=== PATIENT | male | born 1995 | race Caucasian/White ===

== ENCOUNTER 2019-06-01 22:57 | Observation (INO) | payer SELFPAY ==
[~2019-06-01] VITALS: Ht 188 cm; Wt 81.8 kg
[2019-06-01 23:46] LABS: BASOPHILS 0.2 % (0-2); EOSINOPHILS 3.1 % (0-7); HEMATOCRIT 40.4 % (42.0-54.0); HEMOGLOBIN 14.2 g/dL (13.5-17.5); IMMATURE GRANULOCYTES 0.3 % (0-5); LYMPHOCYTES 20.1 % (15-50); MCH 30.5 pg (26.0-34.0); MCHC 35.1 g/dL (31.0-37.0); MCV 86.7 fL (80.0-100.0); MEAN PLATELET VOLUME 9.1 fL (7.4-10.4); MONOCYTES 6.3 % (2-11); PLATELET COUNT 223 10x3/uL (130-400); RBC 4.66 10x6/uL (4.20-6.10); RDW 12.2 % (11.5-14.5); WBC 17.1 10x3/uL (4.8-10.8)
[2019-06-01 23:58] LABS: APTT 27.6 SECONDS (22.8-39.4)
[2019-06-02 00:04] LABS: PROTIME 12.7 SECONDS (11.6-15.0)
[2019-06-02 00:07] LABS: ALBUMIN 4.3 g/dL (3.4-5.0); ALKALINE PHOSPHATASE 56 U/L (46-116); ALT (SGPT) 23 U/L (10-68); BILIRUBIN - TOTAL 0.31 mg/dL (0.2-1.3); CALC OSMOLALITY 281 mosm/kg (275-300); CALCIUM 8.9 mg/dL (8.5-10.1); CARBON DIOXIDE 28.9 mmol/L (21.0-32.0); CHLORIDE - SERUM 103 mmol/L (98-107); CREATININE - SERUM 1.3 mg/dL (0.6-1.3); GLUCOSE 107 mg/dL (74-106); POTASSIUM - SERUM 4.2 mmol/L (3.5-5.1); PROTEIN - SERUM 7.1 g/dL (6.4-8.2); SODIUM 141 mmol/L (136-145); UREA NITROGEN 14 mg/dL (7-18); eGFR NON AFRICAN AMERICAN 71 mL/min (90-120)
[2019-06-02 00:16] LABS: CKMB 1.3 U/L (0.0-3.6); CREATINE KINASE 117 UL (21-232); PRO BNP 50 pg/mL (0-125); TROPONIN-I < 0.017 ng/mL (0.000-0.060)
--- NOTE | 2019-06-02 02:44 | NUR ---
bLOOD SUGAR AT 157 AT 0138, RECHECKED AT 0230 IT WAS 48, NOTIFIED DR RUSSELL ORDERS FOR 1 AMP D 50 AND HAND BAG OF D10 AT 125. RECHECKED BLOOD SUGAR AFTER AT 168. PT AWAKE AND ORIENTED.
[2019-06-02 02:50] LABS: APPEARANCE CLEAR (CLEAR); BILIRUBIN NEGATIVE (NEGATIVE); COLOR YELLOW (YELLOW); GLUCOSE 500 mg/dL (NEGATIVE); KETONE NEGATIVE (NEGATIVE); NITRITE NEGATIVE (NEGATIVE); PROTEIN NEGATIVE (NEGATIVE); SPECIFIC GRAVITY 1.015 (1.005-1.020); UROBILINOGEN NORMAL (NORMAL)
--- NOTE | 2019-06-02 03:51 | NUR ---
FSBS 131. PT STABLE, CALL LIGHT WITHIN REACH, DENIES NEEDS, WILL CONTINUE TO MONITOR.
[2019-06-02 03:52] VITALS: BP 93/42
[2019-06-02 04:57] VITALS: BP 90/44
[2019-06-02 05:03] LABS: AMYLASE - SERUM 57 U/L (25-115); LIPASE 82 U/L (73-393)
[2019-06-02 05:39] VITALS: BP 33/52
--- NOTE | 2019-06-02 05:40 | NUR ---
FSBS 107 AT THIS TIME EDP INFORMED.
--- NOTE | 2019-06-02 06:04 | NUR ---
PT REFUSING BLOOD DRAW AT THIS TIME. INFORMED PT THAT WE NEEDED BLOOD SAMPLES TO BETTER TX AND PT REPLIED," I CAN'T HAVE MY BLOOD DRAWN RIGHT NOW, I WILL START FREAKING OUT AND PUKING.". EDP INFORMED.
--- NOTE | 2019-06-02 06:06 | NUR ---
INFUSION OF ANTIBIOTICS HELD AT THIS TIME FOR FIRST ROUND OF BLOOD CULTURES.
[2019-06-02 06:28] LABS: UDS - AMPHET NEGATIVE QUAL (NEGATIVE); UDS - BARB NEGATIVE QUAL (NEGATIVE); UDS - BENZO NEGATIVE QUAL (NEGATIVE); UDS - COCAINE NEGATIVE QUAL (NEGATIVE); UDS - OPIATE POSITIVE QUAL (NEGATIVE); UDS - PCP NEGATIVE QUAL (NEGATIVE); UDS - THC POSITIVE QUAL (NEGATIVE)
--- NOTE | 2019-06-02 07:30 | NUR ---
RECIEVED FROM ER. ALERT AND ORIENTED. IV TO LEFT AC. DENIES ANY NEEDS. WILL MONITOR
[2019-06-02 08:43] VITALS: BP 94/48
[2019-06-02 12:13] VITALS: BP 111/57
[2019-06-02 13:43] VITALS: Ht 188 cm; Wt 81.8 kg
--- NOTE | 2019-06-02 14:19 | NUR ---
ASSESSMENT COMPLETE PT AAOX4 RESTING QUIETLY RESP UNLABORED SKIN W/D REFUSING ALL LABS REFUSING MEDICATIONS
[2019-06-02 15:10] LABS: BASOPHILS 0.1 % (0-2); EOSINOPHILS 2.3 % (0-7); HEMATOCRIT 40.7 % (42.0-54.0); HEMOGLOBIN 13.7 g/dL (13.5-17.5); IMMATURE GRANULOCYTES 0.1 % (0-5); LYMPHOCYTES 12.2 % (15-50); MCHC 33.7 g/dL (31.0-37.0); MEAN PLATELET VOLUME 9.3 fL (7.4-10.4); MONOCYTES 6.4 % (2-11); NEUTROPHILS 78.9 % (40-80); PLATELET COUNT 192 10x3/uL (130-400); RBC 4.56 10x6/uL (4.20-6.10); RDW 12.2 % (11.5-14.5)
[2019-06-02 15:11] LABS: MCV 89.3 fL (80.0-100.0); WBC 8.7 10x3/uL (4.8-10.8)
[2019-06-02 15:37] LABS: ALBUMIN 4.2 g/dL (3.4-5.0); ALKALINE PHOSPHATASE 60 U/L (46-116); ALT (SGPT) 20 U/L (10-68); CALCIUM 8.8 mg/dL (8.5-10.1); CARBON DIOXIDE 30.6 mmol/L (21.0-32.0); CHLORIDE - SERUM 106 mmol/L (98-107); CREATININE - SERUM 1.2 mg/dL (0.6-1.3); GLUCOSE 108 mg/dL (74-106); POTASSIUM - SERUM 3.8 mmol/L (3.5-5.1); PROTEIN - SERUM 6.8 g/dL (6.4-8.2); SODIUM 142 mmol/L (136-145); eGFR NON AFRICAN AMERICAN 78 mL/min (90-120)
[2019-06-02 15:38] LABS: CALC OSMOLALITY 281 mosm/kg (275-300); UREA NITROGEN 7 mg/dL (7-18)
[2019-06-02] MEDS ORDERED: OMNICEF300 MG PO (17:09)
--- NOTE | 2019-06-02 18:08 | NUR ---
RX FOR OMNICEF CALLED TO [facility]. SPOKE TO GLADIS PHARMACIST.
--- NOTE | 2019-06-02 18:28 | NUR ---
PT DISCHARGED. IV DCD WITH TIP INTACT. TO PRIVATE CAR PER WHEELCHAIR
--- NOTE | 2019-06-04 09:33 | MORECARE ---
CASE MANAGEMENT DISCHARGE SUMMARY PATIENT: HARVINDER PIRES UNIT: [id number] ADM DATE: 06/02/19 AGE: 24 : [birth year] SEX: M ROOM/BED: D.7531 AUTHOR: KENNETH GOEL PHYSICIAN: REFERRING PHYSICIAN: PINKY ARTEAGA MD DATE OF SERVICE: 06/04/19 Discharge Plan Patient Name: HAR[facility]IND[facility]IRES [facility] [facility] 1995 Planned Disposition: Home Anticipated Discharge Date: 06/02/19 Discharge Date: 06/02/2019 Expected LOS: 1 Initial Reviewer: [email or web address] Initial Review Date: 06/04/2019 Generated: 06/04/19 10:33 am Patient Name: HARVINDER PIRES Page [id number] at 0933 All edits/amendments must be made on the electronic document DICTATION DATE: 06/04/19932 MAINTENANCE SUPERVISOR 2ND SHIFT: ARPIT 06/04/19932 RPT#: [id number] DC DATE:06/02/19 STATUS: DIS IN [facility] [address] [place] [address] END OF REPORT
== END 2019-06-02 18:30 | disposition home or self-care (01) ==
LOC: D.ER 22:57 → D.M2 06-02 06:05 → OBSVTIME 06-02 06:05 → D.M2 06-02 06:05
PROVIDERS: Family Medicine; ADMIT Family Medicine; ATTEND Family Medicine
DX: T70.3XXA Caisson disease [decompression sickness], initial encounter (principal); X58.XXXA Exposure to other specified factors, initial encounter; D72.829 Elevated white blood cell count, unspecified; F12.90 Cannabis use, unspecified, uncomplicated; E87.5 Hyperkalemia